=== PATIENT | female | born 1960 | race African-American/Black ===

== ENCOUNTER 2016-07-18 14:56 | Emergency (ER) | payer OTHER ==
[2016-07-18] MEDS ORDERED: DIAZEPAM 5 MG TABLET PO ONE (15:50)
--- NOTE | 2016-07-18 15:52 | ER Document Report ---
ED General - General Chief Complaint: Vertigo Stated Complaint: DIZZY AND NAUSEA Time Seen by Provider: 07/18/16 15:29 Mode of Arrival: Medic Information source: Patient Notes: This is a 56-year-old female with no significant medical problems who presents to the emergency room with acute vertigo waking her up out of sleep at 1 AM. Patient denies fever, chills, nausea or vomiting. Patient denies any recent infections. Patient does state she had a dental abscess and was treated 2 weeks ago with an antibiotic but not has not had any problems since that time. Patient denies headache. She denies any focal motor weakness or speech changes. - HPI Onset: This morning Onset/Duration: Sudden Quality of pain: No pain Severity: None Pain Level: Denies Associated symptoms: denies: Chest pain, Fever, Shortness of breath Exacerbated by: Movement Relieved by: Denies Similar symptoms previously: Yes Recently seen / treated by doctor: No - Related Data Allergies/Adverse Reactions: Penicillins Allergy (Verified 07/18/16 15:11) Past Medical History - General Information source: Patient - Social History Smoking Status: Never Smoker Cigarette use (# per day): No Chew tobacco use (# tins/day): No Frequency of alcohol use: None Drug Abuse: None Lives with: Family Family History: Reviewed & Not Pertinent - Past Medical History Cardiac Medical History: Reports: None Pulmonary Medical History: Reports: None EENT Medical History: Reports: None Neurological Medical History: Reports: Other Endocrine Medical History: Reports: None Renal/ Medical History: Reports: None Malignancy Medical History: Reports: None GI Medical History: Reports: None Musculoskeltal Medical History: Reports None Skin Medical History: Reports None Psychiatric Medical History: Reports: None Traumatic Medical History: Reports: None Infectious Medical History: Reports: None Past Surgical History: Reports: Hx Hysterectomy Review of Systems - Review of Systems Constitutional: denies: Chills, Fever EENT: Ear pain - Right ear pain Cardiovascular: No symptoms reported Respiratory: No symptoms reported Gastrointestinal: No symptoms reported Genitourinary: No symptoms reported Female Genitourinary: No symptoms reported Musculoskeletal: No symptoms reported Skin: No symptoms reported Hematologic/Lymphatic: No symptoms reported Neurological/Psychological: See HPI Physical Exam - Vital signs Vitals: Temp Pulse Resp BP Pulse Ox 97.2 F 79 18 146/76 H 100 07/18/16 14:56 07/18/16 14:56 07/18/16 14:56 07/18/16 14:56 07/18/16 14:56 Notes: Physical exam: GENERAL: 36-year-old female, alert and oriented 3, no acute distress HEAD: Atraumatic, normocephalic. EYES: Pupils equal round and reactive to light, extraocular movements intact, sclera anicteric, conjunctiva are normal. ENT: TMs normal, nares patent, oropharynx clear without exudates. Moist mucous membranes. NECK: Normal range of motion, supple without lymphadenopathy or JVD. LUNGS: Breath sounds clear to auscultation bilaterally and equal. No wheezes rales or rhonchi. HEART: Regular rate and rhythm without murmurs, rubs or gallops. ABDOMEN: Soft, normoactive bowel sounds. No tenderness to palpation. No guarding, no rebound. No masses appreciated. EXTREMITIES: Normal range of motion, no pitting or edema. No clubbing or cyanosis. NEUROLOGICAL: Cranial nerves II through XII grossly intact. Cerebellar: Finger to nose: Pretty good. Motor 5 over 5, blending machine operator strength good, sensory grossly intact, Normal speech, gait not assessed. PSYCH: Normal mood, normal affect. SKIN: Warm, Dry, normal turgor, no rashes or lesions noted. Course - Vital Signs Vital signs: Temp Pulse Resp BP Pulse Ox 98.1 F 79 21 H 137/79 H 100 07/18/16 19:49 07/18/16 14:56 07/18/16 19:49 07/18/16 19:49 07/18/16 19:49 - Laboratory Result Diagrams: 07/18/16 16:20 07/18/16 16:20 Laboratory results interpreted by me: 07/18/16 07/18/16 16:20 16:20 WBC 12.2 H Seg Neutrophils % 81.0 H Absolute Neutrophils 9.9 H Sodium 136.8 L - Diagnostic Test Radiology reviewed: Image reviewed, Reports reviewed - MRI shows no evidence of stroke Discharge - Discharge Clinical Impression: benign positional vertigo Condition: Stable Disposition: HOME, SELF-CARE Instructions: Vertigo ([facility]), Otitis Externa ([facility]) Additional Instructions: As we discussed, the MRI of the brain showed no evidence of acute stroke. This is a very sensitive test for stroke so these are good results. Recommendations: See the instruction sheet for vertigo. Take the meclizine 1 tablet every 8 hours as needed for vertigo. Because you are having some irritation of the right ear and it did look slightly red, I am giving use some drops to see if that will help with your symptoms. Take these drops twice daily for the next few days. Follow-up with your primary care doctor when back home. Bring a copy of today's lab work, x-rays and MRI report with you when you go see that doctor. Return to the ER for any concerns he getting worse. Prescriptions: Meclizine HCl 25 mg PO Q6HP PRN #14 tab.chew PRN Reason: Neomy Sulf/Polymyx B Sulf/Hc [Cortisporin Ear Suspension] 2 ml RT_EAR BID #10 drops.susp
[2016-07-18 16:42] LABS: ABSOLUTE BASOPHILS # (AUTO) 0.1 10^3/uL (0.0-0.2); ABSOLUTE LYMPHOCYTES (AUTO) 1.7 10^3/uL (0.5-4.7); ABSOLUTE MONOCYTES (AUTO) 0.5 10^3/uL (0.1-1.4); ABSOLUTE NEUT (AUTO) 9.9 10^3/uL (1.7-8.2); BASOPHILS % (AUTO) 0.6 % (0-2); EOSINOPHILS % (AUTO) 0.1 % (0-6); HEMATOCRIT 42.8 % (36.0-47.0); HEMOGLOBIN 14.1 g/dL (12.0-15.5); HGB HCT DIFFERENCE -0.5; LYMPHOCYTES % (AUTO) 14.2 % (13-45); MEAN CORPUSCULAR HEMOGLOBIN 27.1 pg (27.0-33.4); MEAN CORPUSCULAR VOLUME 82 fl (80-97); MONOCYTES % (AUTO) 4.1 % (3-13); RED BLOOD COUNT 5.22 10^6/uL (3.72-5.28); RED CELL DISTRIBUTION WIDTH 13.8 % (11.5-14.0); WHITE BLOOD COUNT 12.2 10^3/uL (4.0-10.5)
[2016-07-18 17:02] LABS: ALANINE AMINOTRANSFERASE 28 U/L (9-52); ALBUMIN 3.9 g/dL (3.5-5.0); ALKALINE PHOSPHATASE 70 U/L (38-126); ANION GAP 10 (5-19); ASPARTATE AMINO TRANSFERASE 19 U/L (14-36); BILIRUBIN,DIRECT 0.3 mg/dL (0.0-0.4); BILIRUBIN,TOTAL 0.6 mg/dL (0.2-1.3); BLOOD UREA NITROGEN 13 mg/dL (7-20); CALCIUM 9.4 mg/dL (8.4-10.2); CARBON DIOXIDE 25 mmol/L (22-30); CHLORIDE 102 mmol/L (98-107); CREATINE KINASE 88 U/L (30-135); CREATININE RESULT 0.53 mg/dL (0.52-1.25); GLUCOSE 101 mg/dL (75-110); POTASSIUM 4.4 mmol/L (3.6-5.0); SODIUM 136.8 mmol/L (137-145); TOTAL PROTEIN 7.4 g/dL (6.3-8.2)
[2016-07-18 17:13] LABS: CREATINE KINASE MB 0.79 ng/mL (<4.55)
[2016-07-18 17:14] LABS: TROPONIN I < 0.012 ng/mL
--- NOTE | 2016-07-18 18:53 | EKG REPORT ---
SEVERITY:- NORMAL ECG - SINUS RHYTHM : Confirmed by: Opal Reed 18-Jul-2016 18:53:08
[2016-07-18] MEDS ORDERED: MECLIZINE HCL 25 MG TABLET PO ONE (19:00)
[2016-07-18 20:01] VITALS: BP 137/79
== END 2016-07-18 19:50 | disposition home or self-care (01) ==
LOC: ER 14:56
DX: H81.10 Benign paroxysmal vertigo, unspecified ear (principal); R11.0 Nausea; H92.01 Otalgia, right ear; Z88.0 Allergy status to penicillin; Z90.710 Acquired absence of both cervix and uterus
CPT/HCPCS: 36415; 70551; 71010; 80053; 82550; 82553; 84484; 85025; 93005; 93010; 99284